=== PATIENT | female | born 1945 ===

== ENCOUNTER 2018-01-21 06:34 | Emergency (ER) | payer MEDICARE, OTHER ==
--- NOTE | 2018-01-21 08:06 | ED PDOC ---
HPI: General Adult Time Seen by Provider: 01/21/18 07:03 Chief Complaint (Nursing): Headache Chief Complaint (Provider): Neck pain History Per: Patient, Family History/Exam Limitations: no limitations Onset/Duration Of Symptoms: Days (x 3) Current Symptoms Are (Timing): Still Present Additional Complaint(s): 72 year old female with a history of diabetes, HTN and hypothyroidism presents to the ED with neck pain for the last 3 days. Patient complains of tightness in the area as well as a mild headache. She took 1 Tylenol 2 times and Motrin 200 mg 4 times with minimal relief. Patient has not seen a doctor and ran out of her thyroid medications 1 week ago. Denies fever, vomiting, motor deficits and injury. PMD: Dr. Shanae Morales Past Medical History Reviewed: Historical Data, Nursing Documentation, Vital Signs Vital Signs: Last Vital Signs Temp 98.3 F 01/21/18 06:47 Pulse 70 01/21/18 06:47 Resp 16 01/21/18 06:47 BP 169/87 H 01/21/18 06:47 Pulse Ox 98 01/21/18 06:47 - Medical History PMH: Diabetes, HTN, Hypothyroidism - Surgical History Surgical History: No Surg Hx - Family History Family History: States: Unknown Family Hx - Immunization History Hx Tetanus Toxoid Vaccination: No Hx Influenza Vaccination: Yes Hx Pneumococcal Vaccination: No - Home Medications Home Medications: Ambulatory Orders Medication Instructions Recorded Lisinopril/Hydrochlorothiazide 1 tab PO DAILY 11/14/14 [Lisinopril-Hydrochlorothiazide 25 mg-20 mg] Atenolol [Tenormin] 25 mg PO DAILY 01/08/18 Levothyroxine 01/08/18 MetFORMIN [glucOPHAGE] 1,000 mg PO BID 01/08/18 Naproxen 250 mg PO BID 01/08/18 Cyclobenzaprine [Cyclobenzaprine 10 mg PO TID #30 tab 01/21/18 HCl] Naproxen [Naprosyn] 500 mg PO BID PRN #20 tablet 01/21/18 - Allergies Allergies/Adverse Reactions: Allergies Allergy/AdvReac Type Severity Reaction Status Date / Time No Known Allergies Allergy Verified 01/21/18 06:47 Review of Systems ROS Statement: Except As Marked, All Systems Reviewed And Found Negative Constitutional: Negative for: Fever Gastrointestinal: Negative for: Nausea, Vomiting Musculoskeletal: Positive for: Neck Pain Neurological: Positive for: Headache Physical Exam - Reviewed Nursing Documentation Reviewed: Yes Vital Signs Reviewed: Yes - Physical Exam Appears: Positive for: Non-toxic, No Acute Distress Head Exam: Positive for: ATRAUMATIC, NORMAL INSPECTION, NORMOCEPHALIC Skin: Positive for: Normal Color, Warm, Dry Eye Exam: Positive for: Normal appearance, EOMI, PERRL Neck: Positive for: Pain On Movement Of Neck Cardiovascular/Chest: Positive for: Regular Rate, Rhythm. Negative for: Murmur Respiratory: Positive for: Normal Breath Sounds. Negative for: Respiratory Distress Gastrointestinal/Abdominal: Positive for: Normal Exam, Soft. Negative for: Tenderness Extremity: Positive for: Normal ROM. Negative for: Deformity Neurologic/Psych: Positive for: Alert, Oriented (x3). Negative for: Motor/Sensory Deficits - ECG O2 Sat by Pulse Oximetry: 98 (RA) Pulse Ox Interpretation: Normal Medical Decision Making Medical Decision Makin Impression: neck pain Initial Plan: --Valium 5 mg PO --Toradol 60 mg IM --Accucheck --C-spine x-ray Scribe Attestation: Documented by Susan Flanagan, acting as a scribe for Stephanie Weeks MD Provider Scribe Attestation: All medical record entries made by the Scribe were at my direction and personally dictated by me. I have reviewed the chart and agree that the record accurately reflects my personal performance of the history, physical exam, medical decision making, and the department course for this patient. I have also personally directed, reviewed, and agree with the discharge instructions and disposition. 9.45a - patient feeling better. Will d/c on Naprosyn & Flexeril Disposition - Clinical Impression Clinical Impression: Muscle spasm - Patient ED Disposition Is Patient to be Admitted: No Doctor Will See Patient In The: Office Counseled Patient/Family Regarding: Diagnosis, Need For Followup, Rx Given - Disposition Referrals: Vlad Angelo Joshua [Outside] Disposition: Routine/Home Disposition Time: 09:25 Condition: IMPROVED Prescriptions: Cyclobenzaprine [Cyclobenzaprine HCl] 10 mg PO TID #30 tab Naproxen [Naprosyn] 500 mg PO BID PRN #20 tablet PRN Reason: Pain, Moderate (4-7) Instructions: Muscle Spasms (DC) Forms: [employer] (Spanish)
[2018-01-21 09:54] VITALS: BP 158/77; PULSE 78; RESP 18; TEMP 98.1; O2SAT 100
--- NOTE | 2018-01-21 11:29 | RAD ---
Date of service: 01/21/2018 PROCEDURE: Cervical Spine Radiographs. HISTORY: Pain. COMPARISON: None. FINDINGS: BONES: Alignment maintained. No fracture. Mild posterior subluxation of C5 on C6. Dens Intact. DISC SPACES: Mild multilevel disc space narrowing. SOFT TISSUES: Normal. No prevertebral soft tissue swelling. OTHER FINDINGS: None. IMPRESSION: No acute fracture. Mild multilevel degenerative changes. Mild posterior subluxation of C5 on C6.
== END 2018-01-21 09:55 | disposition home or self-care (01) ==
LOC: H.ER 06:34
DX: M62.838 Other muscle spasm (principal); E03.9 Hypothyroidism, unspecified; I10 Essential (primary) hypertension; E11.9 Type 2 diabetes mellitus without complications; Z79.84 Long term (current) use of oral hypoglycemic drugs
CPT/HCPCS: 72040; 82948; 96372; 99285; J1885